=== PATIENT | female | born 1950 | race Two or more races ===

== ENCOUNTER 2023-05-19 06:00 | Day surgery (SDC) | payer OTHER ==
[2023-05-07 09:08] LABS: HEMATOCRIT 32.9 % (36.0-45.00); HEMOGLOBIN 11.9 g/dL (12.0-15.00); MEAN CELL VOLUME 86.5 fL (80.00-100.00); MEAN CORPUSCULAR HEMOGLOBIN 31.3 pg (27.00-32.0); MEAN CORPUSCULAR HGB CONC 36.2 g/dl (32.0-36.0); PLATELET COUNT 297 K/uL (150-450); RED CELL DISTRIBUTION WIDTH 13.4 % (11.5-14.5)
[2023-05-07 09:32] LABS: COL EPI 139 SECONDS (82-175)
[2023-05-07 09:39] LABS: ALBUMIN 3.8 gm/dL (3.4-5.0); BILIRUBIN TOTAL 0.9 mg/dL (0.3-1.2); CALCIUM 8.9 mg/dL (8.5-10.1); CREATININE SERUM 0.59 mg/dL (0.55-1.02); GFR 99.91; GLOBULINA 2.6 G/DL (2.4-3.5); POTASSIUM 3.29 mEq/L (3.5-5.1); TOTAL PROTEIN 6.4 gm/dL (6.4-8.2)
[2023-05-07 09:45] LABS: INR 0.98; PARTIAL THROMBOPLASTIN TIME 27.3 SECONDS (22.0-34.0); PROTHROMBIN TIME 10.3 SECONDS (9.0-11.5)
[2023-05-07 10:10] LABS: URINE APPEARANCE Clear; URINE BILIRRUBIN Negative (NEGATIVE); URINE BLOOD Negative; URINE COLOR Yellow; URINE GLUCOSE Negative (NEGATIVE); URINE LEUKOCYTE Small; URINE NITRATE Negative; URINE PROTEIN Negative (NEGATIVE); URINE UROBILINOGEN 0.2 E.U./dl
[2023-05-07 10:16] LABS: URINE BACTERIA 187.7 uL (0.0-1933); URINE EPITHELIAL CELLS 11.8 uL (0.0-38.8); URINE WBC 11.7 uL (0.0-23.2)
[~2023-05-19] VITALS: Ht 167.6 cm; Wt 59.0 kg
[~2023-05-19 06:00] MED LIST: COZAAR100 MG PO; METFORMIN HCL500 M3 PO; SIMVASTATIN5 MG PO
== END 2023-05-19 15:00 | disposition home or self-care (01) ==
LOC: CIR.AMB 06:00
PROVIDERS: ATTEND Orthopaedic Surgery
DX: S82.042A Displaced comminuted fracture of left patella, initial encounter for closed fracture (principal); M17.12 Unilateral primary osteoarthritis, left knee; M65.862 Other synovitis and tenosynovitis, left lower leg; Z20.822 Contact with and (suspected) exposure to COVID-19; E11.9 Type 2 diabetes mellitus without complications; Z88.0 Allergy status to penicillin
CPT/HCPCS: 27524; L8699

== ENCOUNTER 2023-07-09 09:50 | Outpatient (CLI) | payer OTHER | END 2023-07-09 10:04 | disposition home or self-care (01) | LOC: MAMO-SONO 09:50 | DX: N64.4 Mastodynia (principal); Z12.31 Encounter for screening mammogram for malignant neoplasm of breast ==

== ENCOUNTER 2025-03-24 07:08 | Outpatient (CLI) | payer OTHER | END 2025-03-24 07:10 | disposition home or self-care (01) | LOC: NUCLEAR 07:08 | PROVIDERS: ATTEND Internal Medicine | DX: I20.9 Angina pectoris, unspecified (principal) | CPT/HCPCS: 78452; 93017; A9500 ==